=== PATIENT | female | born 1980 | race Caucasian/White ===

== ENCOUNTER → 2016-04-27 | Outpatient (CLI) | payer OTHER ==
--- NOTE | 2016-04-27 14:26 | XR ---
EXAMINATION TYPE: XR foot complete RT DATE OF EXAM ORDERED: 04/27/2016 12:33 PM HISTORY: Lateral foot pain. COMPARISON: Previous study dated 01/28/2016. FINDINGS: No fracture, dislocation or other acute osseous lesion is seen. There are stable plantar a nd Achilles calcaneal spurs. IMPRESSION: 1. NO ACUTE OSSEOUS LESION. 2. CALCANEAL SPURS.
== END | disposition home or self-care (01) ==
LOC: RADXRMAIN 12:20
PROVIDERS: ATTEND Internal Medicine
DX: M77.31 Calcaneal spur, right foot (principal)

== ENCOUNTER 2016-07-24 15:07 | Emergency (ER) | payer OTHER ==
[2016-07-24 15:27] VITALS: RESP 18
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
[2016-07-24 16:37] VITALS: BP 151/87; PULSE 92; TEMP 98.5
== END 2016-07-24 16:28 | disposition short-term general hospital (02) ==
LOC: EC 15:07
DX: S05.31XA Ocular laceration without prolapse or loss of intraocular tissue, right eye, initial encounter (principal); M06.9 Rheumatoid arthritis, unspecified; M79.7 Fibromyalgia; F41.9 Anxiety disorder, unspecified; F32.9 Major depressive disorder, single episode, unspecified; G89.29 Other chronic pain; M54.2 Cervicalgia; F17.200 Nicotine dependence, unspecified, uncomplicated; Z79.899 Other long term (current) drug therapy; Z79.1 Long term (current) use of non-steroidal anti-inflammatories (NSAID); Z88.0 Allergy status to penicillin; Z88.8 Allergy status to other drugs, medicaments and biological substances; Y04.0XXA Assault by unarmed brawl or fight, initial encounter
CPT/HCPCS: 99284

== ENCOUNTER → 2017-06-14 | Outpatient (CLI) | payer OTHER ==
--- NOTE | 2017-06-14 23:12 | MR ---
EXAMINATION TYPE: MR cspine/tspine/lspine wo con DATE OF EXAM: 06/14/2017 COMPARISON: NONE HISTORY: Neck and back pain TECHNIQUE: Multiplanar, multisequence imaging of the cervical thoracic and lumbar spine is performed without IV contrast. FINDINGS: Cervical spine Cervical vertebra have normal alignment. There is mild decreased signal in the cervical disc spaces o n the T2 images. There are small posterior disc herniations at C4-5 C5-6 C6-7 and slight elevation of the posterior longitudinal ligament. There is developmentally adequate spinal canal and no spinal st enosis. The canal measures 10.5 mm at C6-7. Cervical spinal cord has normal signal pattern. There is no edema. Brainstem appears normal. Cervical spine shows no compression fracture. There is no cervica l paraspinal mass. CONCLUSION: Multilevel posterior mild cervical disc herniation but no spinal stenosis due to developmentally larg e spinal canal. No fracture. Thoracic spine The thoracic vertebra have normal spacing and alignment. There is no compression fracture. There is n o sign of thoracic paraspinal mass. The thoracic posterior elements are intact. There are very small posterior disc bulges at T3-4 T4-5 and T8-9 without impingement on the thoracic spinal cord. Thoracic spinal cord has normal signal pattern without evidence of edema. CONCLUSION: Small multilevel posterior disc bulging in the thoracic spine. No fracture. No spinal stenosis. Lumbar spine The lumbar vertebra have normal alignment. There is narrowing and decreased signal in the L4-5 disc. The other disc spaces have normal signal pattern. There is small posterior L4-5 disc herniation. Ther e is developmentally adequate spinal canal and no spinal stenosis. Neural foramina appear widely benson nt. Facet joints are intact. I see no bony destructive process. There is no lumbar paraspinal mass. The visualized sacroiliac joints appear intact. CONCLUSION: Mild degenerative disc changes at L4-5 with small posterior L4-5 disc herniation. No spinal stenosis.
== END | disposition home or self-care (01) ==
LOC: RADMRIMAIN 16:41
PROVIDERS: ATTEND Psychiatry & Neurology Neurology
DX: M50.221 Other cervical disc displacement at C4-C5 level (principal); M51.26 Other intervertebral disc displacement, lumbar region; M51.24 Other intervertebral disc displacement, thoracic region; M43.06 Spondylolysis, lumbar region
CPT/HCPCS: 72141; 72146; 72148

== ENCOUNTER 2017-10-24 00:19 | Emergency (ER) | payer OTHER ==
[2017-10-24 00:43] VITALS: RESP 18
--- NOTE | 2017-10-24 01:27 | XR ---
EXAMINATION TYPE: XR ribs LT w pa chest xray DATE OF EXAM: 10/24/2017 COMPARISON: NONE HISTORY: Rib pain TECHNIQUE: 3 views FINDINGS: Heart and mediastinum are normal. Lungs are clear. Diaphragm is normal. There is no pleural effusion or pneumothorax. The left ribs appear intact. IMPRESSION: Normal chest. Normal left ribs.
[2017-10-24 01:46] LABS: Appearance,Urine Cloudy (Clear); Bacteria,Urine Rare /hpf; Bilirubin,Urine Negative (Negative); Blood,Urine Negative (Negative); Color,Urine Yellow; Glucose,Urine (UA) Negative (Negative); Ketones,Urine Negative (Negative); Leukocyte Esterase,Urine Large (Negative); Mucus,Urine Moderate /hpf; Nitrite,Urine Negative (Negative); Protein,Urine Trace (Negative); RBC,Urine 3 /hpf (0-5); Specific Gravity,Urine 1.021 (1.001-1.035); Squamous Epithelial Cell,Urine 25 /hpf (0-4); WBC,Urine 52 /hpf (0-5)
[2017-10-24] MEDS ORDERED: HYDROcodone/APAP 5-325MG 1 EACH TAB PO STA (01:50)
[2017-10-24] MEDS ORDERED: SULFAMETHOX-TMP 800-160MG 1 EACH TAB PO STA (01:50)
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
[2017-10-24 02:00] VITALS: BP 102/49; PULSE 67; TEMP 98.8
== END 2017-10-24 02:00 | disposition home or self-care (01) ==
LOC: EC 00:19
DX: S29.9XXA Unspecified injury of thorax, initial encounter (principal); N39.0 Urinary tract infection, site not specified; M79.7 Fibromyalgia; M06.9 Rheumatoid arthritis, unspecified; Q07.00 Arnold-Chiari syndrome without spina bifida or hydrocephalus; F41.9 Anxiety disorder, unspecified; F32.9 Major depressive disorder, single episode, unspecified; F17.200 Nicotine dependence, unspecified, uncomplicated; Z86.14 Personal history of Methicillin resistant Staphylococcus aureus infection; Z98.890 Other specified postprocedural states; Z79.1 Long term (current) use of non-steroidal anti-inflammatories (NSAID); Z79.899 Other long term (current) drug therapy; Z88.0 Allergy status to penicillin; Z88.3 Allergy status to other anti-infective agents; Z88.8 Allergy status to other drugs, medicaments and biological substances; W50.0XXA Accidental hit or strike by another person, initial encounter
CPT/HCPCS: 81001; 81025; 99284

== ENCOUNTER → 2018-07-03 | Outpatient (CLI) | payer OTHER ==
[2018-07-03 15:39] LABS: Basophils # (A) 0.1 k/uL (0-0.2); Basophils % (A) 2 %; Eosinophils # (A) 0.2 k/uL (0-0.7); Eosinophils % (A) 5 %; HCT 46.6 % (34.0-46.0); HGB 15.3 gm/dL (11.4-16.0); Lymphocytes # (A) 1.4 k/uL (1.0-4.8); Lymphocytes % (A) 37 %; MCH 31.5 pg (25.0-35.0); MCHC 32.7 g/dL (31.0-37.0); MCV 96.2 fL (80.0-100.0); Mean Platelet Volume 6.6; Monocytes # (A) 0.2 k/uL (0-1.0); Monocytes % (A) 6 %; Neutrophils # (A) 1.9 k/uL (1.3-7.7); Neutrophils % (A) 50 %; Platelet Count 228 k/uL (150-450); RBC 4.85 m/uL (3.80-5.40); RDW 12.7 % (11.5-15.5); WBC 3.8 k/uL (3.8-10.6)
== END | disposition home or self-care (01) ==
LOC: LABWHC1 14:55
PROVIDERS: ATTEND Nurse Practitioner Family
DX: L40.0 Psoriasis vulgaris (principal); L40.59 Other psoriatic arthropathy; L40.8 Other psoriasis
CPT/HCPCS: 36415; 82565; 84450; 84460; 84520; 85025; 86707; 86803; 87350

== ENCOUNTER → 2018-09-12 | Outpatient (CLI) | payer OTHER ==
[2018-09-12 12:28] LABS: Basophils # (A) 0.1 k/uL (0-0.2); Basophils % (A) 2 %; Eosinophils # (A) 0.1 k/uL (0-0.7); Eosinophils % (A) 3 %; HCT 45.9 % (34.0-46.0); HGB 14.5 gm/dL (11.4-16.0); Lymphocytes # (A) 1.2 k/uL (1.0-4.8); Lymphocytes % (A) 27 %; MCHC 31.7 g/dL (31.0-37.0); Mean Platelet Volume 6.6; Monocytes # (A) 0.2 k/uL (0-1.0); Monocytes % (A) 4 %; Neutrophils # (A) 2.8 k/uL (1.3-7.7); Neutrophils % (A) 62 %; Platelet Count 278 k/uL (150-450); RBC 4.68 m/uL (3.80-5.40); RDW 13.9 % (11.5-15.5); WBC 4.4 k/uL (3.8-10.6)
[2018-09-12 20:01] LABS: ALT 11 U/L (8-44); AST 20 U/L (13-35)
== END | disposition home or self-care (01) ==
LOC: LABWHC1 11:56
PROVIDERS: ATTEND Nurse Practitioner Family
DX: L40.0 Psoriasis vulgaris (principal); L40.8 Other psoriasis; L40.59 Other psoriatic arthropathy
CPT/HCPCS: 36415; 84450; 84460; 85025

== ENCOUNTER → 2018-11-16 | Outpatient (CLI) | payer OTHER ==
--- NOTE | 2018-11-18 23:53 | MR ---
EXAMINATION TYPE: MR brain wo/w con DATE OF EXAM: 11/16/2018 COMPARISON: 07/26/2011 HISTORY: Chiari malformation type II, surgery 2009 TECHNIQUE: Multiplanar, multisequence images of the brain and brainstem is performed without and with IV contras t, utilizing 10 mL intravenous Gadavist . FINDINGS: Ventricles of normal size. There is no mass effect nor midline shift. There is no sign of i ntracranial hemorrhage. Erazo-white matter structures have fairly normal signal pattern. There is no e vidence of cerebral edema. There is no evidence of cortical infarct. Corpus callosum appears normal. Sella turcica appears normal. Ventricles are in normal position. Ther e is no evidence of posterior fossa mass. There is no pathologic enhancement. There is normal contrast opacification of the venous sinuses. The re is occipital craniotomy defect noted. IMPRESSION: Negative MR scan of the brain. No adverse change compared to old exam.
== END | disposition home or self-care (01) ==
LOC: RADMRIMAIN 20:33
PROVIDERS: ATTEND Psychiatry & Neurology Neurology
DX: Q07.00 Arnold-Chiari syndrome without spina bifida or hydrocephalus (principal); Z88.0 Allergy status to penicillin; Z88.1 Allergy status to other antibiotic agents; Z88.8 Allergy status to other drugs, medicaments and biological substances
CPT/HCPCS: 70553; A9585

== ENCOUNTER → 2018-12-26 | Outpatient (CLI) | payer OTHER ==
--- NOTE | 2018-12-26 08:24 | US ---
EXAMINATION TYPE: US liver DATE OF EXAM: 12/26/2018 COMPARISON: NONE CLINICAL HISTORY: R74.8 ABN LIVER ENZYMES. elevated lft's, no symptoms, large body habitus EXAM MEASUREMENTS: Liver Length: 16.5 cm Gallbladder Wall: 0.2 cm CBD: 0.6 cm Right Kidney: 9.3 x 5.7 x 4.2 cm Pancreas: wnl Liver: wnl Gallbladder: wnl Evidence for sonographic Funes's sign: no CBD: wnl Right Kidney: wnl IMPRESSION: Homogeneous hepatic echotexture despite transaminitis. No focal hepatic mass is seen. No sonographic evidence of cholelithiasis nor acute cholecystitis.
--- NOTE | 2018-12-26 08:33 | US ---
EXAMINATION TYPE: US pelvis complete transvag DATE OF EXAM: 12/26/2018 COMPARISON: NONE CLINICAL HISTORY: R10.2 PELVIC PAIN. Increase in cramping, otherwise normal cycles, TECHNIQUE: TA/TV. Transabdominal sonographic images of the pelvis were acquired. Transvaginal sono graphic images were medically necessary to better assess the following anatomy: uterus and ovaries Date of LMP: 12/16/2018 EXAM MEASUREMENTS: Uterus: 9.9 x 5.3 x 5.2 cm Endometrial Stripe: 1.1 cm Right Ovary: N/A Left Ovary: N/A *habitus and bowel gas limits exam 1. Uterus: Anteverted difficult to fully assess UT due to bowel gas and habitus 2. Endometrium: wnl 3. Right Ovary: not seen due to bowel gas 4. Left Ovary: not seen due to bowel gas 5. Bilateral Adnexa: bowel gas 6. Posterior cul-de-sac: wnl IMPRESSION: Exam is markedly limited secondary to patient body habitus. Uterus was difficult to visua lize although appears within normal limits of size as is the endometrium. Ovaries are not seen due to bowel gas and patient body habitus.
== END ==
LOC: RADUSWWP 06:59
PROVIDERS: ATTEND Family Medicine
DX: R74.0 Nonspecific elevation of levels of transaminase and lactic acid dehydrogenase [LDH] (principal); R10.2 Pelvic and perineal pain
CPT/HCPCS: 76705; 76830; 76856

== ENCOUNTER → 2019-06-19 | Outpatient (CLI) | payer OTHER ==
--- NOTE | 2019-06-19 08:36 | US ---
EXAMINATION TYPE: US abdomen complete DATE OF EXAM: 06/19/2019 COMPARISON: NONE CLINICAL HISTORY: R10.9 abdominal pain. EXAM MEASUREMENTS: Liver Length: 13.1 cm Gallbladder Wall: 0.2 cm CBD: 0.3 cm Spleen: 10.6 cm Right Kidney: 9.5 x 4.7 x 45.0 cm Left Kidney: 9.1 x 4.3 x 4.5 cm Morbidly obese patient. Pancreas: Tail obscured by overlying bowel gas Liver: wnl Gallbladder: wnl Evidence for sonographic Funes's sign: no CBD: wnl Spleen: wnl Right Kidney: Inferior pole obscured by bowel gas Left Kidney: No hydronephrosis or masses seen Upper IVC: wnl Abd Aorta: mostly obscured by bowel gas, portions visualized wnl The liver is homogenous. The intrahepatic portion of the IVC and proximal abdominal aorta are within normal limits. There is no evidence of cholelithiasis. Common bile duct is unremarkable. The visu alized portions of the pancreas are homogenous. The spleen is unremarkable. Kidneys are symmetric a nd free of hydronephrosis. No renal lesions are seen. IMPRESSION: No distinct abnormality appreciated
== END | disposition home or self-care (01) ==
LOC: RADUSWWP 07:36
PROVIDERS: ATTEND Family Medicine
DX: R10.11 Right upper quadrant pain (principal)
CPT/HCPCS: 76700

== ENCOUNTER → 2019-07-05 | Outpatient (CLI) | payer OTHER ==
--- NOTE | 2019-07-05 10:14 | NM ---
Nuclear medicine hepatobiliary scan. HISTORY: Pain. DOSAGE: The patient received and 4.7 mCi of Technetium 99m Choletec. FINDINGS: There is normal hepatic extraction. The gallbladder is seen by 20 minutes. There is bilia ry to bowel clearance by 20 minutes. Ejection fraction is 93%. IMPRESSION: 1. No evidence of cholecystitis. Ejection fraction is 93%.
== END | disposition home or self-care (01) ==
LOC: RADNMMAIN 06:52
PROVIDERS: ATTEND Family Medicine
DX: R10.10 Upper abdominal pain, unspecified (principal)
CPT/HCPCS: 78226; A9537

== ENCOUNTER 2020-04-29 14:36 | Emergency (ER) | payer OTHER ==
[2020-04-29 14:41] VITALS: PULSE 68; TEMP 98.6
[2020-04-29] MEDS ORDERED: BACITRACIN OINT 1 EACH PACKET TOPICAL ONE (14:51)
--- NOTE | 2020-04-29 14:57 | ED ---
Fall HPI - General Chief Complaint: Fall Stated Complaint: Fall Time Seen by Provider: 04/29/20 14:42 Source: patient Mode of arrival: wheelchair - History of Present Illness Initial Comments: Patient is a 39-year-old female with history of right eye blindness, presenting to the emergency department after falling down a few steps about 30 minutes prior to arrival. Patient states she bumped her elbow on her porch and then she lost her balance falling forward down approximately 5 steps outside. Patient states she hit her left hand on the ground as well as the left side of her face. Patient is complaining of some mild neck pain on the right side, no loss of consciousness. She is not on blood thinners. No dizziness. She does have a mild headache and is also complaining of left sided facial pain. She admits to a mild abrasion on her left knee, no chest pain or shortness of breath. No abdominal pain no nausea or vomiting. - Related Data Home Medications Medication Instructions Recorded Confirmed Citalopram Hydrobromide [CeleXA] 40 mg PO DAILY 07/24/16 07/24/16 Furosemide [Lasix] 40 mg PO DAILY 07/24/16 07/24/16 Dicyclomine [Bentyl] 10 mg PO BID PRN 04/29/20 04/29/20 Hydrocortisone [Hydrocortisone 1 applic TOPICAL BID 04/29/20 04/29/20 0.5% Cream] Loratadine [Claritin] 10 mg PO DAILY 04/29/20 04/29/20 Meloxicam 15 mg PO DAILY 04/29/20 04/29/20 Nystatin 100,000Unit/gm Cream 1 applic TOPICAL BID PRN 04/29/20 04/29/20 [Mycostatin Cream] Omeprazole [PriLOSEC] 40 mg PO DAILY PRN 04/29/20 04/29/20 Potassium Chloride ER [K-Dur 10] 10 meq PO BID 04/29/20 04/29/20 Allergies Allergy/AdvReac Type Severity Reaction Status Date / Time fluconazole [From Diflucan] Allergy Rash/Hives Verified 04/29/20 16:53 Penicillins Allergy Rash/Hives Verified 04/29/20 16:53 duloxetine [From Cymbalta] AdvReac Hallucinati Verified 04/29/20 16:53 ons nortriptyline AdvReac Hallucinati Verified 04/29/20 16:53 ons pregabalin [From Lyrica] Jarad Powellinati Verified 04/29/20 16:53 ons Review of Systems ROS Statement: Those systems with pertinent positive or pertinent negative responses have been documented in the HPI. ROS Other: All systems not noted in ROS Statement are negative. 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 Patient is nontoxic and in no acute distress. HEAD: Atraumatic, normocephalic. EYES: Right eye blindness. Left pupil equal round and reactive to light, extraocular movements intact, sclera anicteric, conjunctiva are normal. Left lateral eye abrasion. ENT: TMs normal, nares patent, oropharynx clear without exudates. Moist mucous membranes. NECK: Patient was placed in a c-collar upon arrival to the ER, when c-collar was cleared, normal range of motion, no midline tenderness. There is some mild right-sided paraspinal soreness. Normal range of motion, supple without lymphadenopathy or JVD. LUNGS: Unlabored respirations. Breath sounds clear to auscultation bilaterally and equal. No wheezes rales or rhonchi. HEART: Regular rate and rhythm without murmurs, rubs or gallops. ABDOMEN: Soft, nontender, normoactive bowel sounds. No guarding, no rebound. No masses appreciated. : Deferred MUSCULOSKELETAL: Mild abrasion to the left knee, full range of motion. Normal extremities with adequate strength and normal range of motion, no pitting or edema. No clubbing or cyanosis. NEUROLOGICAL: Patient is alert and oriented x 3. Motor and sensory are also intact. Cranial nerves II through XII grossly intact. Symmetrical smile. Normal speech, normal gait. PSYCH: Normal mood, normal affect. SKIN: Warm, Dry, normal turgor, no rashes or lesions noted. Limitations: physical limitation Course Vital Signs 04/29/20 04/29/20 14:37 16:45 Temperature 98.6 F Pulse Rate 68 68 Respiratory 20 18 Rate Blood Pressure 139/74 139/73 O2 Sat by Pulse 97 100 Oximetry Medical Decision Making - Medical Decision Making She is a 39-year-old female presenting after she fell forward down approximate 5 steps prior to arrival. They did place a c-collar upon arrival secondary to patient complaining of some mild neck pain. She also had a mild abrasion to her left eye as well as some pain in her left hand. I did do a CT of the head, C- spine and facial bones and shows no acute processes at this time. I discussed with patient that she can take Tylenol or Motrin for discomfort as well as apply ice to the left side of her face for swelling and bruising. She does have a mild abrasion to the left hand, recommend keeping this area clean and dry. Patient is stable for discharge. She can follow up with her regular doctor. Patient is in agreement this plan of care. Return parameters were discussed with the patient she verbalized understanding. Case discussed Dr. Suarez. Disposition Clinical Impression: Fall, Facial contusion, Abrasion of knee, left Disposition: HOME SELF-CARE Condition: Stable Instructions (If sedation given, give patient instructions): Abrasion (ED) Additional Instructions: Please return to the Emergency Department if symptoms worsen or any other concerns. Recommend Tylenol or Motrin for any discomfort. Apply ice to left-sided the face for swelling or pain. Follow up with your regular doctor. Is patient prescribed a controlled substance at d/c from ED?: No Referrals: Inga Hart MD [Primary Care Provider] - 1-2 days
--- NOTE | 2020-04-29 16:27 | CT ---
EXAMINATION TYPE: CT facial bones wo con DATE OF EXAM: 04/29/2020 COMPARISON: None HISTORY: Fall facial injury CT DLP: Not provided CONTRAST: 0 mL of Isovue 300 The paranasal sinuses are examined in the axial plane at 2 mm thick sections. Reconstructed images i n the coronal plane were obtained. Note is made of prior occipital craniotomy. The maxillary sinuses are clear. The ethmoid air cells are clear. The sphenoid sinuses are clear. 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 Right frontal sinuses hypoplastic. The septum is evaluated. There is septal deviation to the left. The ostiomeatal units are patent. Soft tissue swelling is over the right cheek region. The underlying zygomatic arches are intact. No a cute fractures are evident. The maxillary spine is intact. Nasal bones appear intact. IMPRESSIONS: 1. Right cheek soft tissue swelling. 2. No acute fractures evident.
--- NOTE | 2020-04-29 16:38 | CT ---
EXAMINATION TYPE: CT brain tim wo con DATE OF EXAM: 04/29/2020 COMPARISON: 07/26/2011 HISTORY: Fall, head and neck pain CT DLP: Not provided mGycm, Automated exposure control for dose reduction was used. CONTRAST: Patient injected with 0 mL of Isovue 300. CT of the brain is performed utilizing 3 mm thick sections through the posterior fossa and 3 mm thick sections through the remaining calvarium. Study is performed within 24 hours of arrival to the hospital. No abnormal hyperdensity is present to suggest an acute intracranial hemorrhage. No mass lesion is evident. No acute infarcts are evident. Ventricles and sulci are appropriate for the patient age. Prior subtotal craniotomy is evident. No acute fractures are evident. Paranasal sinuses and mastoid air cells within the [id number] are clear. IMPRESSIONS: 1. No acute intracranial process. CT cervical spine. COMPARISON: None CT of the cervical spine is performed in the axial plane at 2 mm thick sections. Reconstructed image s in the coronal, and sagittal plane are reviewed on the computer. No acute fractures are evident. There is straightening of the cervical spine in the sagittal plane. Mild degenerative disc changes are present within the mid cervical spine. Vertebral body heights are preserved. No spinal canal stenosis is evident. There is some foraminal narrowing due to uncovertebral joint hypertrophy. Endplate spurring is presen t. IMPRESSIONS: 1. No acute osseous abnormality cervical spine. 2. Mild degenerative disc changes
[2020-04-29 16:49] VITALS: BP 139/73; RESP 18
== END 2020-04-29 16:45 | disposition home or self-care (01) ==
LOC: EC 14:36
DX: S00.83XA Contusion of other part of head, initial encounter (principal); S80.212A Abrasion, left knee, initial encounter; S60.512A Abrasion of left hand, initial encounter; M54.2 Cervicalgia; M79.7 Fibromyalgia; M06.9 Rheumatoid arthritis, unspecified; H54.61 Unqualified visual loss, right eye, normal vision left eye; F41.9 Anxiety disorder, unspecified; F32.9 Major depressive disorder, single episode, unspecified; Z79.899 Other long term (current) drug therapy; Z79.1 Long term (current) use of non-steroidal anti-inflammatories (NSAID); Z88.0 Allergy status to penicillin; Z88.3 Allergy status to other anti-infective agents; Z88.8 Allergy status to other drugs, medicaments and biological substances; W10.9XXA Fall (on) (from) unspecified stairs and steps, initial encounter; Y92.009 Unspecified place in unspecified non-institutional (private) residence as the place of occurrence of the external cause
CPT/HCPCS: 70450; 70486; 72125; 99283

== ENCOUNTER → 2021-09-21 | Outpatient (CLI) | payer OTHER ==
--- NOTE | 2021-09-21 12:08 | MR ---
EXAMINATION TYPE: MR brain wo/w con DATE OF EXAM: 09/21/2021 COMPARISON: MR brain 11/16/2018, CT brain 04/29/2020 HISTORY: Headaches, hx decompression surgery for arnold chiari. TECHNIQUE: Multiplanar, multisequence images of the brain and brainstem is performed without and with IV contras t, utilizing 10 mL intravenous Gadavist . FINDINGS: Diffusion weighted images demonstrate no evidence of a recent infarct or other diffusion ab normality. There is no extra-axial fluid collection or significant change in white matter signal abn ormality, right frontal subcortical hyperintensity and inversion recovery T2-weighted sequences on ax ial image 21 of series 501 is somewhat more conspicuous than prior and measures approximately 5 mm. The ventricular system and cisternal spaces are normal in size and appearance. The brain volume is a ge appropriate. Postop changes in the posterior fossa are stable. Midline structures demonstrate normal morphology. The craniocervical junction appears within normal limits. Post contrast images demonstrate no abnormal enhancement. The dural venous sinuses appear pa tent. The visualized sinuses are remarkable for inflammatory change in the right maxillary sinus, the re may be mucus retention cyst, some inflammatory change present in the ethmoid air cells, and the gl obes are asymmetric, abnormal low signal present within the right lobe which is diminished in size si milar to prior exam. IMPRESSION: Stable exam. Mild sinus disease. Additional findings above.
== END | disposition home or self-care (01) ==
LOC: RADMRIMAIN 10:34
PROVIDERS: ATTEND Nurse Practitioner Family
DX: Q07.00 Arnold-Chiari syndrome without spina bifida or hydrocephalus (principal)
CPT/HCPCS: 70553